=== PATIENT | male | born 2000 | race Caucasian/White ===

== ENCOUNTER 2021-07-09 19:41 | Emergency (ER) | payer MEDICAID ==
[~2021-07-09] VITALS: Ht 165.1 cm; Wt 86.0 kg
[2021-07-09 20:30] VITALS: BP 121/86
[2021-07-09] MEDS ORDERED: CEFTRIAXONE SODIUM 500 MG/VIAL IM ONE (22:00)
[2021-07-09] MEDS ORDERED: AZITHROMYCIN 500 MG TABLET PO ONE (22:00)
[2021-07-09] MEDS ORDERED: IBUPROFEN 400MG TABLET PO ONE (22:45)
[2021-07-09] MEDS ORDERED: ACETAMINOPHEN 325MG TABLET PO ONE (22:45)
[2021-07-09] MEDS ORDERED: TETANUS, DIPHTHERIA, PERTUSSIS VAC/PF 0.5ML (>7YR OLD) IM ONE (23:30)
[2021-07-09] MEDS ORDERED: NAPR-1176 MT (23:36)
[2021-07-09] MEDS ORDERED: DOXY100T2 MT (23:36)
[2021-07-09] MEDS ORDERED: ACET-2708 MT (23:36)
[2021-07-09] MEDS ORDERED: XLV MT (23:38)
[2021-07-10 00:01] LABS: CLARITY URINE CLEAR (CLEAR); COLOR URINE YELLOW (YELLOW); KETONES URINE NEGATIVE (NEGATIVE); LEUKOCYTE ESTERASE URINE NEGATIVE (NEGATIVE); NITRITE URINE NEGATIVE (NEGATIVE); OCCULT BLOOD URINE 2+ (NEGATIVE); PROTEIN URINE NEGATIVE (NEGATIVE); SPECIFIC GRAVITY URINE 1.023 (1.005-1.030); UROBILINOGEN URINE 0.2 E.U./dL (0.2-1.0)
[2021-07-12 04:07] LABS: NEISSERIA GONORRHOEAE NAA Negative (Negative)
== END 2021-07-10 01:28 | disposition home or self-care (01) ==
LOC: EDSEX 19:41 → ER 19:41
DX: N48.5 Ulcer of penis (principal); R30.0 Dysuria
CPT/HCPCS: 81003; 86592; 87491; 87591; 90471; 90715; 96372; 99284; J0696